=== PATIENT | male | born 1995 | race Caucasian/White ===

== ENCOUNTER 2016-11-26 10:45 | Observation (INO) | payer BC, MEDICAID ==
[~2016-11-26] VITALS: Ht 157.5 cm; Wt 59.9 kg
[2016-11-28] MEDS ORDERED: MONTELUKAST SOD10 MG PO (12:01)
[2016-11-28] MEDS ORDERED: PROVENTIL2.5 MG/3 M IH (12:01)
[2016-11-28] MEDS ORDERED: QVAR8.7 GM IH (12:01)
[2016-11-28] MEDS ORDERED: DULERA 100/58.8 GM IH (12:01)
[2016-11-28] MEDS ORDERED: CLARITIN DPS10 MG PO (12:02)
[2016-12-02] MEDS ORDERED: DULERA 200/58.8 GM IH (17:29)
[2016-12-02] MEDS ORDERED: QVAR8.7 GM IH (17:29)
[2016-12-02] MEDS ORDERED: MONTELUKAST SOD10 MG PO (17:30)
[2016-12-02] MEDS ORDERED: PROVENTIL2.5 MG/3 M IH (17:30)
[2016-12-02] MEDS ORDERED: CLARITIN DPS10 MG PO (17:30)
[2016-12-02] MEDS ORDERED: PROVENTIL HFA6.7 GM IH (17:31)
[2016-12-02] MEDS ORDERED: OMNICEF DPS300 MG PO (17:31)
== END 2016-11-27 13:55 | disposition home or self-care (01) ==
LOC: 6PED 10:45
PROVIDERS: ADMIT Pediatrics
DX: R11.10 Vomiting, unspecified (principal); J45.909 Unspecified asthma, uncomplicated; Z79.899 Other long term (current) drug therapy

== ENCOUNTER 2016-11-29 09:55 | Inpatient (IN) | payer BC, MEDICAID ==
[~2016-11-29] VITALS: Ht 157.5 cm; Wt 60.2 kg
[~2016-11-29 09:55] MED LIST: CLARITIN DPS10 MG PO; DULERA 100/58.8 GM IH; MONTELUKAST SOD10 MG PO; PROVENTIL2.5 MG/3 M IH; QVAR8.7 GM IH
[2016-12-02] MEDS ORDERED: DULERA 200/58.8 GM IH (17:29)
[2016-12-02] MEDS ORDERED: QVAR8.7 GM IH (17:29)
[2016-12-02] MEDS ORDERED: PROVENTIL2.5 MG/3 M IH (17:30)
[2016-12-02] MEDS ORDERED: MONTELUKAST SOD10 MG PO (17:30)
[2016-12-02] MEDS ORDERED: CLARITIN DPS10 MG PO (17:30)
[2016-12-02] MEDS ORDERED: OMNICEF DPS300 MG PO (17:31)
[2016-12-02] MEDS ORDERED: PROVENTIL HFA6.7 GM IH (17:31)
--- NOTE | 2016-12-08 13:52 | HP ---
ADMIT: 11/29/2016 RM/LOC: [address] [facility] MR#: [id number] [facility]#: [id number] [address] [facility] [address] [place] [id number] DARIUS CARTER [address] [facility] [place] [address] History and Physical SEX: M AGE: 21 : 1995 DATE OF SERVICE: CHIEF COMPLAINT: Recurrent abdominal pain and vomiting. HISTORY OF PRESENT ILLNESS: The patient was dismissed from the hospital on Monday after having abdominal pain and vomiting. Did have loose stool while in the hospital. The day he left and the day after he seemed to be doing much better. His p.o. was fine. Activity level was good, but then he started having increase fevers and recurrent abdominal pain. I saw him in the clinic and he has severe generalized abdominal pain appeared to be soft but was difficult to tell if there is any rebound tenderness or guarding due to the level of his discomfort. REVIEW OF SYSTEMS: Abdominal pain, vomiting, no diarrhea. No nasal congestion, some coughing and feeling like he had some phlegm in his throat. Having fevers, decreased appetite, and decreased urine output, decreased activity level. SOCIAL HISTORY: He is due to graduate from high school on December 06. PAST MEDICAL HISTORY: Significant for disease with bowel resection. He has asthma severe persistent, he has allergic rhinitis and trisomy 21. ALLERGIES: NOT ALLERGIC TO ANY MEDICINE. MEDICATIONS: 1. QVAR 80, two puffs in the morning. 2. Dulera 200, two puffs at night. 3. Loratadine 10 mg daily. 4. ProAir two puffs every 4 hours as needed for cough or wheeze. 5. Singulair 10 mg daily. PHYSICAL EXAMINATION: GENERAL: Darius is an ill appearing and acute discomfort. HEENT: His tongue was dry. LUNGS: Clear. No wheezing. No rales. HEART: Tachycardia with regular rhythm. ABDOMEN: Diffusely tender. Had increased tenderness in his right lower quadrant and his left upper quadrant. His cap refill is brisk. ADMIT: 11/29/2016 RM/LOC: [address] [facility] MR#: [id number] [address] [id number] DARIUS CARTER [address] [place] [address] History and Physical SEX: M AGE: 21 : 1995 IMPRESSION: 1. Abdominal pain. 2. Vomiting. 3. Trisomy 21. 4. Asthma, severe, persistent. 5. Allergic rhinitis. PLAN: Is to get a CT scan of his abdomen. We will get CBC, CRP, sedimentation rate, CMP, amylase, lipase, and influenza. We will continue his home asthma medicines. We will give him ondansetron 4 mg IV as needed for the nausea, and we will make a further plan after the CT results. Elana Land MD/ kiah JOB #: [id number] CC: Elana Land MD, Attending Physician Elana Land MD, Family Physician
--- NOTE | 2016-12-08 13:52 | DS ---
ADMIT: 11/29/2016 RM/LOC: 633 [facility] MR#: [id number] [facility]#: [id number] [address] [facility] [address] [place] [id number] [address] KIMBERLY Davis [address] [place] [address] Discharge Summary SEX: M AGE: 21 : 1995 ADMISSION DATE: 11/29/2016 DISCHARGE DATE: 12/01/2016 DISCHARGE DIAGNOSES: 1. Bilateral pneumonia. 2. Abdominal pain. 3. Vomiting. 4. Trisomy 21. 5. Fair persistent asthma. 6. Allergic rhinitis. HOSPITAL COURSE: After readmission and having worsening abdominal pain, I got a CT with and without contrast especially due to the history of Hirschsprung's disease with bowel resection. A CT scan of his abdomen and pelvis was normal but there was noted to be bilateral basilar consolidations in the lungs. His white count was 18.1, 90% neutrophils. H and H was normal and platelets were normal. Sed rate was 27 and CRP was 9.69. CMP was unremarkable. Amylase and lipase were normal. Influenza was negative. I started him on Rocephin 1 g b.i.d. He did have temperature spikes up to 102.8. The following day, his white blood cells went down slightly to 17.2. His sed rate did go up to 37, and his CRP went up to 10.7. He was feeling better not having any more abdominal pain. Coughing up some sputum. He did develop a right subconjunctival hemorrhage due to his severe nausea and some facial petechia. Because of readmission and labs that had not improved, decided to keep him another 24 hours for continued IV antibiotics. Day of dismissal he was no longer having any abdominal pain. No more nausea and eating well. Continued to have low-grade fevers but overall much improved. PHYSICAL EXAMINATION: ENT: His mucous membranes were wet. PULMONARY: Lungs had coarse rales in the bases bilaterally. GASTROINTESTINAL: Abdomen was soft, nontender. DISPOSITION: Patient was discharged to home in good condition. Will continue antibiotics p.o. with cefdinir 300 mg 2 p.o. daily for 10 days. Will continue all of his home asthma medications. I want him to do his albuterol MDI 3 times a day until I see him again in the clinic. We will follow up with him next week. Elana Land MD/ efraín JOB #: [id number] CC: Elana Land MD, Attending Physician Elana Land MD, Family Physician
== END 2016-12-01 13:30 | disposition home or self-care (01) | DRG 195 ==
LOC: 6PED 09:55
PROVIDERS: ADMIT Pediatrics
DX: J18.9 Pneumonia, unspecified organism (principal); Q90.9 Down syndrome, unspecified; H11.31 Conjunctival hemorrhage, right eye; R11.2 Nausea with vomiting, unspecified; J45.50 Severe persistent asthma, uncomplicated